=== PATIENT | female | born 1960 | race Two or more races ===

== ENCOUNTER 2017-07-26 15:30 | Emergency (ER) | payer SELFPAY ==
[~2017-07-26] VITALS: Ht 170.2 cm; Wt 74.8 kg
[2017-07-26 16:34] VITALS: BP 114/75
[2017-07-26] MEDS ORDERED: PHENAZOPYRIDINE HCL 100 MG TAB PO ONE (17:30)
== END 2017-07-26 17:28 | disposition home or self-care (01) ==
LOC: ER 15:30
DX: N39.0 Urinary tract infection, site not specified (principal); Z88.1 Allergy status to other antibiotic agents
CPT/HCPCS: 81002